=== PATIENT | male | born 1930 | race Caucasian/White ===

== ENCOUNTER 2019-10-15 13:06 | Emergency (ER) | payer MEDICARE, BC ==
[~2019-10-15] VITALS: Ht 170.2 cm; Wt 70.0 kg
[2019-10-15] MEDS ORDERED: TETanus/Pertussis (Acell)/Diphther VAC/PF (Tdap-Adult) 0.5ml syringe IMVAC ONE (13:25)
[2019-10-15] MEDS ORDERED: LIDOcaine 1% W/epiNEPHrine 1:200,000 10ml vial IJ ONE (13:25)
[2019-10-15] MEDS ORDERED: acetaminophen 325mg tablet PO ONE (13:25)
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
--- NOTE | 2019-10-15 13:42 | NUR ---
PATIENT TO CT.
--- NOTE | 2019-10-15 14:04 | NUR ---
BACK FROM CT
--- NOTE | 2019-10-15 14:30 | NUR ---
AT BEDSIDE. UPPER LIP SUTURED WITH DISOLVABLE STICHES. SEWING FOREHEAD LAC NOW WITH REMOVABLE SUTURES.
[2019-10-15 15:22] VITALS: BP 141/70
== END 2019-10-15 15:38 | disposition home or self-care (01) ==
LOC: ER 13:07
DX: S01.81XA Laceration without foreign body of other part of head, initial encounter (principal); S01.511A Laceration without foreign body of lip, initial encounter; S16.1XXA Strain of muscle, fascia and tendon at neck level, initial encounter; S00.03XA Contusion of scalp, initial encounter; Z86.73 Personal history of transient ischemic attack (TIA), and cerebral infarction without residual deficits; W18.30XA Fall on same level, unspecified, initial encounter; Y93.89 Activity, other specified; Y92.89 Other specified places as the place of occurrence of the external cause; Y99.8 Other external cause status
CPT/HCPCS: 12011; 12052; 13132; 70450; 70486; 72125; 90471; 90715; 99285

== ENCOUNTER 2020-08-05 07:49 | Observation (INO) | payer MEDICARE, BC ==
[~2020-08-05] VITALS: Ht 170.2 cm; Wt 71.1 kg
[2020-08-05] MEDS ORDERED: LIDOcaine 5% patch TP STA (09:45)
[2020-08-05] MEDS ORDERED: acetaminophen 325mg tablet PO ONE (09:45)
[2020-08-05] MEDS ORDERED: polyethylene glycol 3350 17gm powd pack PO STA (09:49)
[2020-08-05] MEDS ORDERED: magnesium citrate 296ml oral solution PO ONE (09:50)
[2020-08-05 10:54] LABS: BASOPHILS % (AUTO) 0.1 % (0-1); EOSINOPHILS % (AUTO) 0.1 % (0-6); HEMATOCRIT 45.4 % (42.0-52.0); LYMPHOCYTES # (AUTO) 0.6 X10'3 (1.1-4.8); MEAN CORPUSCULAR HEMOGLOBIN 35.6 PG (27.0-31.0); MEAN CORPUSCULAR HGB CONC 35.2 g/dL (33.0-36.5); MEAN CORPUSCULAR VOLUME 101.2 FL (78-98); MEAN PLATELET VOLUME 6.7 FL (7.4-10.4); MONOCYTES # (AUTO) 1.2 X10'3 (0-0.9); MONOCYTES % (AUTO) 10.5 % (2-12); NEUTROPHILS # (AUTO) 9.9 X10'3 (1.8-7.7); NEUTROPHILS % (AUTO) 84.3 % (42-75); PLATELET COUNT 355 X10'3 (140-440); RED BLOOD COUNT 4.49 X10'6 (4.70-6.10); RED CELL DISTRIBUTION WIDTH 12.4 % (11.5-14.5); WHITE BLOOD COUNT 11.7 X10'3 (4.5-11.0)
[2020-08-05 11:09] LABS: ALANINE AMINOTRANSFERASE 24 U/L (12-78); ALBUMIN 3.9 G/DL (3.4-5.0); ALBUMIN/GLOBULIN RATIO 1.1 (1.1-1.5); ALKALINE PHOSPHATASE 101 IU/L (46-116); ANION GAP 9 (8-16); ASPARTATE AMINO TRANSFERASE 23 U/L (10-37); BILIRUBIN,TOTAL 1.5 MG/DL (0.1-1.0); BLOOD UREA NITROGEN 12 MG/DL (7-18); BUN/CREATININE RATIO 10.5 (5.4-32.0); CALCIUM 9.3 MG/DL (8.5-10.1); CHLORIDE 89 MMOL/L (99-107); CREATININE 1.14 MG/DL (0.60-1.10); GLUCOSE 141 MG/DL (70-104); SODIUM 123 MMOL/L (135-145); TOTAL CARBON DIOXIDE 24.7 MMOL/L (24-32); TOTAL PROTEIN 7.5 G/DL (6.4-8.2); eGFR 60 ML/MIN
--- NOTE | 2020-08-05 11:15 | NUR ---
PCT going to dietary for soda for ordered enema.
--- NOTE | 2020-08-05 11:24 | NUR ---
No soad available; katty de león notified. he just cancelled enema based on lab results.
[2020-08-05] MEDS ORDERED: acetaminophen 325mg tablet PO PRN ×2 (12:25)
[2020-08-05] MEDS ORDERED: morphine 2 MG/ML inj. syringe IV PRN (12:25)
[2020-08-05] MEDS ORDERED: FLUT16SP26 BOTHNARES (12:25)
[2020-08-05] MEDS ORDERED: magnesium Cl slow-release 64mg tablet PO PRN (12:25)
[2020-08-05] MEDS ORDERED: LISI20TA28 PO (12:25)
[2020-08-05] MEDS ORDERED: SIMV-42 PO (12:25)
[2020-08-05] MEDS ORDERED: magnesium 4gm in 100ml NS 100 ML IV PRN (12:25)
[2020-08-05] MEDS ORDERED: CLOP75TA34 PO (12:25)
[2020-08-05] MEDS ORDERED: ondansetron/PF 4mg/2ml inj IV PRN (12:25)
[2020-08-05] MEDS: normal saline 1000ml 1,000 ML IV SCH ×2 (12:25→22:25)
[2020-08-05] MEDS ORDERED: magnesium 2GM in 50ml NS 50 ML IV PRN (12:25)
[2020-08-05] MEDS ORDERED: potassium Cl 40MEQ/1/2NS 520ml 520 ML IV PRN ×2 (12:25)
[2020-08-05] MEDS ORDERED: potassium Cl 20 mEq SR tablet PO PRN ×2 (12:25)
[2020-08-05] MEDS ORDERED: FEXO1TAB5 PO (12:26)
--- NOTE | 2020-08-05 16:07 | NUR ---
PAGER ID: [phone] MESSAGE: Gabe Saleh [id number] Nursing notes from ER state enema canceled. Pt. states they did examination and stool was "too far up there" to do an enema. Do you still want soap suds enema? Lauren [phone]
--- NOTE | 2020-08-05 16:08 | NUR ---
Pt. admitted to floor. Came up from ER on [facility]. Received report from Katina VAUGHAN. Placed on ordered fluids and tele number [id number]. Pt. oriented to room and able to demonstrate use of call light. Aware to ask for help if getting up.
[2020-08-05 16:20] VITALS: BP 130/79
[2020-08-05] MEDS ORDERED: CHOL100046 PO (18:21)
[2020-08-05] MEDS ORDERED: AMLO2.5T2 PO (18:21)
[2020-08-05] MEDS ORDERED: MAGN100T PO (18:21)
[2020-08-05] MEDS ORDERED: ACET-1 (18:21)
--- NOTE | 2020-08-05 18:44 | NUR ---
Problems reprioritized. Patient report given, questions answered & plan of care reviewed with Nettie VAUGHAN.
--- NOTE | 2020-08-05 18:47 | NUR ---
PAGER ID: [phone] MESSAGE: Gabe Saleh [id number] Please note new medications added to med req. that need to be addressed by MD Thank you! Lauren [phone]
[2020-08-05] MEDS ORDERED: ZINC50TA67 PO (18:50)
[2020-08-05] MEDS ORDERED: CARB15DR (18:50)
[2020-08-05] MEDS ORDERED: MULT-1085 PO (18:50)
[2020-08-05] MEDS ORDERED: FEXO-124 PO (18:50)
[2020-08-05] MEDS ORDERED: CAPS1ADH11 TOP (18:50)
[2020-08-05] MEDS ORDERED: PANT40TA54 PO (18:52)
[2020-08-05] MEDS: K and/or MAG REPLACEMENT MC SCH (19:13)
[2020-08-05] MEDS: heparin, porcine 5000 units/ml vial SQ SCH (20:13)
[2020-08-05] MEDS: HYDROcodone/acetaminophen 5mg/325mg tablet PO PRN (20:20)
[2020-08-05] MEDS ORDERED: atorvastatin 10mg tablet PO SCH (21:00)
[2020-08-05 22:00] VITALS: BP 116/67
[2020-08-06] MEDS: normal saline 1000ml 1,000 ML IV SCH ×2 (02:05→08:25)
[2020-08-06 06:13] LABS: BASOPHILS % (AUTO) 0.3 % (0-1); EOSINOPHILS % (AUTO) 0.2 % (0-6); HEMATOCRIT 39.6 % (42.0-52.0); HEMOGLOBIN 13.8 g/dl (14.0-17.9); LYMPHOCYTES # (AUTO) 0.8 X10'3 (1.1-4.8); LYMPHOCYTES % (AUTO) 7.7 % (21-51); MEAN CORPUSCULAR HEMOGLOBIN 35.5 PG (27.0-31.0); MEAN CORPUSCULAR HGB CONC 34.9 g/dL (33.0-36.5); MEAN CORPUSCULAR VOLUME 101.8 FL (78-98); MONOCYTES # (AUTO) 1.4 X10'3 (0-0.9); MONOCYTES % (AUTO) 14.2 % (2-12); NEUTROPHILS # (AUTO) 7.8 X10'3 (1.8-7.7); NEUTROPHILS % (AUTO) 77.6 % (42-75); PLATELET COUNT 303 X10'3 (140-440); RED BLOOD COUNT 3.89 X10'6 (4.70-6.10); RED CELL DISTRIBUTION WIDTH 12.6 % (11.5-14.5)
--- NOTE | 2020-08-06 06:16 | NUR ---
REPORT GIVEN TO ALEXUS JANE.
[2020-08-06 06:24] LABS: ALANINE AMINOTRANSFERASE 19 U/L (12-78); ALBUMIN 2.8 G/DL (3.4-5.0); ALKALINE PHOSPHATASE 74 IU/L (46-116); ANION GAP 7 (8-16); ASPARTATE AMINO TRANSFERASE 17 U/L (10-37); BILIRUBIN,TOTAL 0.9 MG/DL (0.1-1.0); BLOOD UREA NITROGEN 11 MG/DL (7-18); BUN/CREATININE RATIO 11.1 (5.4-32.0); CALCIUM 8.3 MG/DL (8.5-10.1); CHLORIDE 96 MMOL/L (99-107); CREATININE 0.99 MG/DL (0.60-1.10); GLUCOSE 99 MG/DL (70-104); MAGNESIUM 2.3 MG/DL (1.5-2.4); POTASSIUM 3.9 MMOL/L (3.5-5.1); SODIUM 129 MMOL/L (135-145); TOTAL CARBON DIOXIDE 25.6 MMOL/L (24-32); TOTAL PROTEIN 5.5 G/DL (6.4-8.2); eGFR 71 ML/MIN
[2020-08-06 06:43] VITALS: BP 135/68
[2020-08-06] MEDS: K and/or MAG REPLACEMENT MC SCH (07:54)
[2020-08-06] MEDS: HYDROcodone/acetaminophen 5mg/325mg tablet PO PRN (07:54)
[2020-08-06] MEDS: heparin, porcine 5000 units/ml vial SQ SCH (07:57)
[2020-08-06] MEDS ORDERED: lisinopril 20mg tablet PO SCH (08:00)
[2020-08-06] MEDS ORDERED: clopidogrel 75mg tablet PO SCH (08:00)
[2020-08-06 10:19] VITALS: BP 108/77
--- NOTE | 2020-08-06 10:28 | NUR ---
Malnutrition Consult: Pt admit w/ 7 days constipation now s/p large BM today 5/2 per EMR. Pt reports 2-13 pound wt loss w/ decreased intake past week per EMR. Pt has normal strength, appears well-developed/well-nourished per ER note, and PO first clear liquid meal last night. Constipation likely to impact PO hx though no significant wt loss hx since ER admit October 2019 per EMR. Does not meet minimum malnutrition criteria at this time. Addendum: 08/06/20 at [address] Amended: Links added.
[2020-08-06] MEDS ORDERED: SODI100035 PO (11:32)
[2020-08-06] MEDS ORDERED: DOCU-148 PO (11:36)
--- NOTE | 2020-08-06 12:29 | NUR ---
PAGER ID: [phone] MESSAGE: MITRA "SUDHIR" AISHWARYA [id number] DOES NOT WANT TO DISCHARGE UNTIL HE HAS A [facility]CO PRESCRIPTION FOR HIS NEW BACK FRACTURES. STATES BACK HAS BEEN VERY PAINFUL AND THAT HE MAY HAVE TO COME BACK W/O MEDICATION. LUCINDA [id number]
--- NOTE | 2020-08-06 12:47 | NUR ---
FRANCO CALLED BACK STATES PT. NEEDS TO SPEAK WITH PCP FOR CHRONIC PAIN MANAGEMENT.
--- NOTE | 2020-08-06 12:47 | NUR ---
PAGER ID: [phone] MESSAGE: MITRA NEFF [phone] HE IS WANTING ME TO TALK TO YOU AGAIN AND ASK FOR DISCHARGE PAIN MEDICATION. SAYS HE CAME IN WITH BACK PAIN, THEY FOUND FX AND NOW HE IS NOT GETTING TREATED FOR IT?? LUCINDA [phone]
--- NOTE | 2020-08-06 12:49 | NUR ---
REVIEWED DISCHARGE PAPERWORK WITH PT. DISCUSSED NEW MEDICATIONS. PT. GIVES GOOD VERBAL FEEDBACK. DAUGHTER AND AWARE EVERYTHING OF IMPORTANCE IS HIGHLIGHTED ON DISCHARGE PAPERWORK. IV DC'D AND PRESSURE BANDAGE APPLIED, NO S/SX BLEEDING NOTED AND CANNULA INTACT. PT. GATHERED ALL OF HIS BELONGINGS INCLUDING HIS IPAD AND HEARING AIDS AND TOOK THEM WITH HIM. HE IS AWARE HE NEED TO INCREASE FLUID INTAKE AND F/U WITH HIS PCP WITHIN A WEEK, ESPECIALLY TO MANAGE CHRONIC PAIN. ESCORTED IN W/C DOWNSTAIRS WHERE HIS AND DAUGHTER TOOK HIM HOME.
== END 2020-08-06 13:00 | disposition home or self-care (01) ==
LOC: ER 07:50 → ED HOLD 12:22 → EDBEDREQ 13:50 → ORTHO 4S 15:42
PROVIDERS: ADMIT Internal Medicine; ATTEND Internal Medicine
DX: E87.1 Hypo-osmolality and hyponatremia (principal); K59.09 Other constipation; G89.29 Other chronic pain; M54.5 Low back pain; I10 Essential (primary) hypertension; E78.5 Hyperlipidemia, unspecified; K21.9 Gastro-esophageal reflux disease without esophagitis; G62.9 Polyneuropathy, unspecified; Z86.73 Personal history of transient ischemic attack (TIA), and cerebral infarction without residual deficits; Z79.02 Long term (current) use of antithrombotics/antiplatelets; Z79.899 Other long term (current) drug therapy
CPT/HCPCS: 36415; 74176; 80053; 83735; 83930; 85025; 87081; 96360; 96361; 96372; 97116; 97161; 97530; 99284; G0378; J1644; J7030

== ENCOUNTER 2020-08-11 07:45 | Emergency (ER) | payer MEDICARE, BC ==
[~2020-08-11] VITALS: Ht 170.2 cm; Wt 70.5 kg
[~2020-08-11 07:45] MED LIST: ACET-1; AMLO2.5T2 PO; CAPS1ADH11 TOP; CARB15DR; CHOL100046 PO; CLOP75TA34 PO; DOCU-148 PO; FEXO-124 PO; FEXO1TAB5 PO; FLUT16SP26 BOTHNARES; LISI20TA28 PO; MAGN100T PO; MULT-1085 PO; PANT40TA54 PO; SIMV-42 PO; SODI100035 PO; ZINC50TA67 PO
[2020-08-11] MEDS ORDERED: celeCOXIB 100mg capsule PO ONE (08:35)
[2020-08-11] MEDS ORDERED: cyclobenzaprine 10mg tablet PO ONE (08:35)
[2020-08-11] MEDS ORDERED: morphine 4 MG/ML inj SYRINge IV ONE (08:35)
--- NOTE | 2020-08-11 10:13 | NUR ---
Dr Bowling made aware patient still in pain while standing up. MD to reassess patient.
[2020-08-11] MEDS: morphine 2 MG/ML inj. syringe IV PRN ×2 (10:20→10:58)
[2020-08-11] MEDS ORDERED: magnesium citrate 296ml oral solution PO ONE (11:15)
[2020-08-11] MEDS ORDERED: HYDR-3965 PO (11:52)
[2020-08-11] MEDS ORDERED: CELE-193 PO (11:52)
[2020-08-11] MEDS ORDERED: CYCL-1 PO (11:52)
[2020-08-11 12:07] VITALS: BP 127/69
== END 2020-08-11 12:08 | disposition home or self-care (01) ==
LOC: ER 07:46
DX: M54.5 Low back pain (principal); G89.29 Other chronic pain; K59.00 Constipation, unspecified; Z86.73 Personal history of transient ischemic attack (TIA), and cerebral infarction without residual deficits; Z85.9 Personal history of malignant neoplasm, unspecified; Z98.890 Other specified postprocedural states; Z79.899 Other long term (current) drug therapy
CPT/HCPCS: 96374; 96376; 99284; J2270

== ENCOUNTER 2020-09-15 06:51 | Day surgery (SDC) | payer MEDICARE, BC ==
[2020-09-15] VITALS (12 sets, daily range): BP systolic 131–156; BP diastolic 69–85
[~2020-09-15] VITALS: Ht 170.2 cm; Wt 66.3 kg
[~2020-09-15 06:51] MED LIST changes: +CYCL-1 PO
[2020-09-15] MEDS ORDERED: Cefazolin 2GM/100ML NS IVPB 100 ML IV ONE (07:50)
[2020-09-15 07:52] LABS: BASOPHILS # (AUTO) 0.1 X10'3 (0-0.2); BASOPHILS % (AUTO) 0.5 % (0-1); EOSINOPHILS # (AUTO) 0.1 X10'3 (0-0.9); EOSINOPHILS % (AUTO) 0.6 % (0-6); HEMATOCRIT 45.5 % (42.0-52.0); HEMOGLOBIN 15.8 g/dl (14.0-17.9); LYMPHOCYTES # (AUTO) 0.8 X10'3 (1.1-4.8); LYMPHOCYTES % (AUTO) 6.3 % (21-51); MEAN CORPUSCULAR HEMOGLOBIN 35.3 PG (27.0-31.0); MEAN CORPUSCULAR HGB CONC 34.7 g/dL (33.0-36.5); MEAN CORPUSCULAR VOLUME 101.9 FL (78-98); MEAN PLATELET VOLUME 7.2 FL (7.4-10.4); MONOCYTES # (AUTO) 1.1 X10'3 (0-0.9); MONOCYTES % (AUTO) 8.9 % (2-12); NEUTROPHILS # (AUTO) 10.5 X10'3 (1.8-7.7); NEUTROPHILS % (AUTO) 83.7 % (42-75); PLATELET COUNT 358 X10'3 (140-440); RED BLOOD COUNT 4.47 X10'6 (4.70-6.10); RED CELL DISTRIBUTION WIDTH 12.6 % (11.5-14.5); WHITE BLOOD COUNT 12.5 X10'3 (4.5-11.0)
[2020-09-15] MEDS ORDERED: cefazolin/dext.iso 2gm/100ml 100 ML IV ONE (07:59)
[2020-09-15] MEDS ORDERED: diphenhydrAMINE 50 mg/ml inj ONE (08:26)
[2020-09-15] MEDS ORDERED: midazolam 1 mg/ML 2ml injection ONE (08:26)
[2020-09-15] MEDS ORDERED: LIDOcaine 1%/PF 5ML 10 MG/ML VIAL ONE (08:26)
[2020-09-15] MEDS ORDERED: fentaNYL/PF 50MCG/1 ML 2ML syringe ONE ×2 (08:27→09:47)
[2020-09-15] MEDS ORDERED: iohexol 300 MG/1 ML 50ml polymer ONE (08:47)
[2020-09-15] MEDS ORDERED: morphine 2 MG/ML inj. syringe IV PRN (10:00)
[2020-09-15] MEDS ORDERED: HYDROcodone/acetaminophen 5mg/325mg tablet PO PRN (10:00)
[2020-09-15] MEDS ORDERED: normal saline 1000ml 1,000 ML IV SCH (10:00)
== END 2020-09-15 14:40 | disposition home or self-care (01) ==
LOC: SSTAY O 06:51
PROVIDERS: ATTEND Radiology Vascular & Interventional Radiology
DX: M80.08XA Age-related osteoporosis with current pathological fracture, vertebra(e), initial encounter for fracture (principal); Z79.899 Other long term (current) drug therapy; Z79.01 Long term (current) use of anticoagulants; Z86.73 Personal history of transient ischemic attack (TIA), and cerebral infarction without residual deficits; Z98.890 Other specified postprocedural states; M54.6 Pain in thoracic spine; I10 Essential (primary) hypertension
CPT/HCPCS: 22513; 36415; 85025; 85610; C1713; J1200; J2250; J3010; J7030; Q9967; 99152; 99153

== ENCOUNTER 2020-10-11 11:34 | Day surgery (SDC) | payer MEDICARE, BC ==
[2020-10-11] VITALS (10 sets, daily range): BP systolic 128–197; BP diastolic 73–111
[~2020-10-11] VITALS: Ht 170.2 cm; Wt 65.6 kg
[~2020-10-11 11:34] MED LIST changes: -AMLO2.5T2 PO; -CYCL-1 PO; -FEXO1TAB5 PO; -MAGN100T PO; -MULT-1085 PO; -PANT40TA54 PO; -SODI100035 PO
[2020-10-11] MEDS ORDERED: normal saline 1000ml 1,000 ML IV PRN (12:20)
[2020-10-11] MEDS ORDERED: POLY17PO10 PO (12:25)
[2020-10-11] MEDS ORDERED: MULT-1215 PO (12:25)
[2020-10-11 12:32] LABS: BASOPHILS # (AUTO) 0.1 X10'3 (0-0.2); BASOPHILS % (AUTO) 0.4 % (0-1); EOSINOPHILS % (AUTO) 0.3 % (0-6); HEMATOCRIT 44.7 % (42.0-52.0); HEMOGLOBIN 15.5 g/dl (14.0-17.9); LYMPHOCYTES # (AUTO) 0.8 X10'3 (1.1-4.8); MEAN CORPUSCULAR HEMOGLOBIN 34.4 PG (27.0-31.0); MEAN CORPUSCULAR HGB CONC 34.5 g/dL (33.0-36.5); MEAN CORPUSCULAR VOLUME 99.6 FL (78-98); MEAN PLATELET VOLUME 7.4 FL (7.4-10.4); MONOCYTES # (AUTO) 1.2 X10'3 (0-0.9); MONOCYTES % (AUTO) 9.1 % (2-12); NEUTROPHILS # (AUTO) 11.2 X10'3 (1.8-7.7); NEUTROPHILS % (AUTO) 84.2 % (42-75); PLATELET COUNT 407 X10'3 (140-440); RED BLOOD COUNT 4.49 X10'6 (4.70-6.10); RED CELL DISTRIBUTION WIDTH 12.5 % (11.5-14.5); WHITE BLOOD COUNT 13.3 X10'3 (4.5-11.0)
[2020-10-11] MEDS ORDERED: diphenhydrAMINE 50 mg/ml inj ONE (13:26)
[2020-10-11] MEDS ORDERED: fentaNYL/PF 50MCG/1 ML 2ML syringe ONE ×2 (13:26→14:07)
[2020-10-11] MEDS ORDERED: midazolam 1 mg/ML 2ml injection ONE (13:26)
[2020-10-11] MEDS ORDERED: LIDOcaine 1%/PF 5ML 10 MG/ML VIAL ONE ×2 (13:26→13:32)
[2020-10-11] MEDS ORDERED: iohexol 300 MG/1 ML 50ml polymer ONE (14:00)
[2020-10-11] MEDS ORDERED: normal saline 1000ml 1,000 ML IV SCH (15:15)
[2020-10-11] MEDS ORDERED: HYDROcodone/acetaminophen 5mg/325mg tablet PO PRN (15:15)
[2020-10-11] MEDS ORDERED: cefazolin/dext.iso 2gm/100ml 100 ML IV SCH (16:00)
== END 2020-10-11 20:00 | disposition home or self-care (01) ==
LOC: SSTAY O 11:34
PROVIDERS: ATTEND Radiology Vascular & Interventional Radiology
DX: M80.08XA Age-related osteoporosis with current pathological fracture, vertebra(e), initial encounter for fracture (principal); M85.80 Other specified disorders of bone density and structure, unspecified site; M54.6 Pain in thoracic spine; G89.29 Other chronic pain; Z86.73 Personal history of transient ischemic attack (TIA), and cerebral infarction without residual deficits; Z98.890 Other specified postprocedural states; Z79.899 Other long term (current) drug therapy; Z79.01 Long term (current) use of anticoagulants; Z90.79 Acquired absence of other genital organ(s)
CPT/HCPCS: 22514; 36415; 85025; 85610; 99152; 99153; C1713; J1200; J2250; J3010; J7030; Q9967; 22515; 88173; 88305

== ENCOUNTER 2020-10-19 14:48 | Emergency (ER) | payer MEDICARE, BC ==
[~2020-10-19] VITALS: Ht 170.2 cm; Wt 65.9 kg
[~2020-10-19 14:48] MED LIST changes: -CAPS1ADH11 TOP; -CARB15DR; +MULT-1215 PO; +POLY17PO10 PO
[2020-10-19] MEDS ORDERED: mineral oil 133ml enema RC PRN (16:00)
[2020-10-19] MEDS ORDERED: oxyCODONE/APAP 5-325mg tablet PO ONE (16:45)
[2020-10-19 16:57] VITALS: BP 164/70
== END 2020-10-19 17:31 | disposition home or self-care (01) ==
LOC: ER 14:48
DX: K59.00 Constipation, unspecified (principal); R10.84 Generalized abdominal pain; E78.00 Pure hypercholesterolemia, unspecified; I10 Essential (primary) hypertension; G89.29 Other chronic pain; Z86.73 Personal history of transient ischemic attack (TIA), and cerebral infarction without residual deficits; Z85.9 Personal history of malignant neoplasm, unspecified; Z79.899 Other long term (current) drug therapy
CPT/HCPCS: 99284

== ENCOUNTER 2020-12-03 19:17 | Emergency (ER) | payer MEDICARE, BC ==
[~2020-12-03] VITALS: Ht 175.3 cm; Wt 75.0 kg
[2020-12-03 19:31] VITALS: BP 176/92
== END 2020-12-03 19:48 | disposition home or self-care (01) ==
LOC: ER 19:18
DX: I10 Essential (primary) hypertension (principal); E78.00 Pure hypercholesterolemia, unspecified; G89.29 Other chronic pain; M85.80 Other specified disorders of bone density and structure, unspecified site; Z98.890 Other specified postprocedural states; Z86.73 Personal history of transient ischemic attack (TIA), and cerebral infarction without residual deficits; Z79.899 Other long term (current) drug therapy
CPT/HCPCS: 99281